=== PATIENT | female | born 1970 | race Caucasian/White ===

== ENCOUNTER 2021-10-08 12:22 | Emergency (ER) | payer OTHER ==
[2021-10-08] MEDS ORDERED: Acetaminophen 500 MG TAB ONE (12:58)
== END 2021-10-08 14:20 | disposition home or self-care (01) ==
LOC: BURERS 12:22
DX: S93.402A Sprain of unspecified ligament of left ankle, initial encounter (principal); F17.210 Nicotine dependence, cigarettes, uncomplicated; X50.9XXA Other and unspecified overexertion or strenuous movements or postures, initial encounter